=== PATIENT | female | born 1985 | race Caucasian/White ===

== ENCOUNTER → 2024-04-06 14:02 | Outpatient (REF) | payer OTHER, SELFPAY | LOC: RAD 14:02 | PROVIDERS: ATTENDING PHYSICIAN Nurse Practitioner Family; FAMILY PHYSICIAN Family Medicine | DX: O26.851 Spotting complicating pregnancy, first trimester (principal) | CPT/HCPCS: 76801 ==

== ENCOUNTER → 2024-04-13 14:51 | Outpatient (REF) | payer OTHER, SELFPAY | LOC: RAD 14:51 | PROVIDERS: ATTENDING PHYSICIAN Obstetrics & Gynecology; FAMILY PHYSICIAN Family Medicine | DX: R10.2 Pelvic and perineal pain (principal); Z34.01 Encounter for supervision of normal first pregnancy, first trimester | CPT/HCPCS: 76801 ==

== ENCOUNTER → 2024-05-10 07:01 | Outpatient (REF) | payer OTHER, SELFPAY | LOC: PNTC 07:01 | PROVIDERS: ATTENDING PHYSICIAN Obstetrics & Gynecology | DX: Z36.0 Encounter for antenatal screening for chromosomal anomalies (principal); Z36.82 Encounter for antenatal screening for nuchal translucency | CPT/HCPCS: 76801; 76813 ==

== ENCOUNTER → 2024-07-01 08:45 | Outpatient (REF) | payer OTHER, SELFPAY | LOC: PNTC 08:45 | PROVIDERS: ATTENDING PHYSICIAN Obstetrics & Gynecology | DX: O09.519 Supervision of elderly primigravida, unspecified trimester (principal) | CPT/HCPCS: 76811 ==

== ENCOUNTER → 2024-08-23 14:15 | Outpatient (REF) | payer OTHER, SELFPAY | LOC: PNTC 14:15 | PROVIDERS: ATTENDING PHYSICIAN Obstetrics & Gynecology | DX: O09.519 Supervision of elderly primigravida, unspecified trimester (principal) | CPT/HCPCS: 76816 ==

== ENCOUNTER → 2024-09-27 07:59 | Outpatient (REF) | payer OTHER, SELFPAY | LOC: PNTC 07:59 | PROVIDERS: ATTENDING PHYSICIAN Obstetrics & Gynecology | DX: O09.529 Supervision of elderly multigravida, unspecified trimester (principal) | CPT/HCPCS: 76816 ==

== ENCOUNTER 2024-11-22 12:01 | Inpatient (IN) | payer OTHER, SELFPAY ==
[2024-11-22 12:27] VITALS: BP 110/74; BMI 32.3
[2024-11-22 13:12] LABS: % Basophils 0.6 % (0-2); % Eosinophils 0.3 % (0-6); % Immature Granulocytes 0.9 % (0-0.5); % Lymphocytes 16.6 % (20.5-51.1); % Monocytes 5.2 % (1.7-9.3); % Neutrophils 76.4 % (42.2-75.2); Absolute Basophils 0.1 10^3/uL (0-0.2); Absolute Immature Granulocytes 0.1 10^3/uL (0-0.05); Absolute Lymphocytes 1.6 10^3/uL (1.2-3.4); Absolute Monocytes 0.5 10^3/uL (0.1-0.6); Absolute Neutrophils 7.4 10^3/uL (1.4-6.5); Hematocrit 32.5 % (37.0-47.0); Hemoglobin 11.1 g/dL (12.0-16.0); Mean Corp Hgb Conc. 34.2 g/dL (33.0-37.0); Mean Corpuscular Hgb 30.4 pg (27.0-31.0); Mean Platelet Volume 11.1 fL (7.4-10.4); Nucleated Red Blood Cells % 0 %; Platelet Count 266 10^3/uL (130-400); Red Blood Cell Count 3.65 10^6/uL (4.20-5.40); White Blood Cell Count 9.7 10^3/uL (4.8-10.8)
[2024-11-22] MEDS: SUBLIMAZE 100 MCG EPIDURAL (23:30)
[2024-11-22] MEDS: FENTANYL/BUPIVACAINE 100 EPIDURAL (23:58)
[2024-11-23] MEDS: LR 1000 IV (00:07)
[2024-11-23] MEDS: TUMS CHEWABLE TABLET 400 MG PO (03:49)
[2024-11-23] MEDS: FENTANYL/BUPIVACAINE 100 EPIDURAL (08:09)
[2024-11-23] MEDS: PITOCIN 30 UNITS/NSS 500 ML IV (11:40)
[2024-11-23] MEDS: MOTRIN 600 MG PO ×2 (15:21→23:44)
[2024-11-23] MEDS: PRENATAL PLUS 1 TABLET PO (20:50)
[2024-11-24 05:03] LABS: Hematocrit 26.9 % (37.0-47.0); Hemoglobin 9.2 g/dL (12.0-16.0)
[2024-11-24] MEDS: MOTRIN 600 MG PO ×2 (06:04→14:18)
[2024-11-24] MEDS: PRENATAL PLUS 1 TABLET PO (08:05)
[2024-11-24] MEDS: SENOKOT-S 1 TABLET PO (14:18)
[2024-11-25] MEDS: MOTRIN 600 MG PO (03:50)
[2024-11-25] MEDS: FEOSOL 325 MG PO (08:17)
[2024-11-25] MEDS: SENOKOT-S 1 TABLET PO (08:17)
[2024-11-25] MEDS: PRENATAL PLUS 1 TABLET PO (08:17)
[2024-11-26 12:58] LABS: Syphilis/T. pallidum Ab Reflex Negative (Negative)
== END 2024-11-25 14:30 | disposition home or self-care (01) | DRG 807 ==
LOC: LDRP 12:01
PROVIDERS: Obstetrics & Gynecology; ADMITTING PHYSICIAN Obstetrics & Gynecology
PROC: 10E0XZZ Delivery of Products of Conception, External Approach (ICD-10-PCS; 2024-11-23)
PROC: 0KQM0ZZ Repair Perineum Muscle, Open Approach (ICD-10-PCS; 2024-11-23)
DX: O48.0 Post-term pregnancy (principal); Z37.0 Single live birth; Z3A.41 41 weeks gestation of pregnancy; O69.81X0 Labor and delivery complicated by cord around neck, without compression, not applicable or unspecified; O70.1 Second degree perineal laceration during delivery; O77.0 Labor and delivery complicated by meconium in amniotic fluid; O90.81 Anemia of the puerperium
CPT/HCPCS: 88307; 36415; 85014; 85018; 85025; 86780; 86850; 86900; 86901